=== PATIENT | male | born 1980 | race Caucasian/White ===

== ENCOUNTER 2021-01-28 18:31 | Inpatient (IN) | payer MEDICAID, SELFPAY ==
[~2021-01-28] VITALS: Ht 180.3 cm; Wt 126.6 kg
[2021-01-28 18:46] VITALS: BP 155/84
--- NOTE | 2021-01-28 18:52 | NUR ---
PT AMBULATORY TO BED #8
--- NOTE | 2021-01-28 19:27 | NUR ---
41 Y/O MALE CAME TO THE ED C/O BOIL IN THE LT BUTTOCK. PT STATES THAT "I HAVE A 10/10 PAIN IN MY LT BUTTOCK." DENIES N/V/D; SKIN IS PINK/WARM/DRY; AAOX4 WITH EVEN AND STEADY GAIT; LUNGS CLEAR BL; HR EVEN AND REGULAR; PT DENIES ANY FEVER, CP, SOB, OR COUGH AT THIS TIME; VSS; PATIENT POSITIONED FOR COMFORT; HOB ELEVATED; BEDRAILS UP X2; BED DOWN. ER MD MADE AWARE OF PT STATUS. NKA PMH: DENIES
[2021-01-28] MEDS ORDERED: KETOROLAC 30 MG/ML VIAL IM ONE (19:40)
[2021-01-28] MEDS ORDERED: CLINDAMYCIN 600 MG in DEXTROSE 5% 50 ML IV ONE (19:55)
[2021-01-28 20:06] LABS: BASOPHILS # (AUTO) 0.1 K/uL (0.00-0.22); BASOPHILS % (AUTO) 0.3 % (0.0-2.0); EOSINOPHILS % (AUTO) 0.1 % (0.0-4.0); HEMATOCRIT 40.1 % (36-52); HEMOGLOBIN 13.1 g/dL (12.0-18.0); LYMPHOCYTES # (AUTO) 2.1 K/uL (2.0-11.5); LYMPHOCYTES % (AUTO) 9.3 % (20.5-51.1); MEAN CORPUSCULAR HEMOGLOBIN 26 pg (27-31); MEAN CORPUSCULAR HGB CONC 33 g/dL (33-37); MEAN CORPUSCULAR VOLUME 79.4 fL (80-94); MONOCYTES # (AUTO) 2.1 K/uL (0.8-1.0); MONOCYTES % (AUTO) 9.3 % (1.7-9.3); NEUTROPHILS # (AUTO) 18.6 K/uL (1.8-7.7); PLATELET COUNT (AUTO) 389 K/uL (140-450); RED BLOOD CELL COUNT(AUTO) 5.05 MIL/uL (4.20-6.10); RED CELL DISTRIBUTION WIDTH 13.5 % (11.6-13.7)
[2021-01-28 20:42] LABS: ALBUMIN 2.5 g/dL (3.4-5.0); ANION GAP 14.7 (8-16); CARBON DIOXIDE 25.8 mmol/L (21-32); POTASSIUM 4.5 mmol/L (3.5-5.1); TOTAL BILIRUBIN 0.5 mg/dL (0.0-1.0)
--- NOTE | 2021-01-28 21:33 | NUR ---
OBTAINED INFORMED CONSENT REGARDING CT WITH CONTRAST; ERMD EXPLAINED THE PROCEDURE, RISKS AND BENEFITS OF PROCEDURE. PT ACKNOWLEGED AND SIGNED INFORMED CONSENT
[2021-01-28] MEDS ORDERED: CLINDAMYCIN 600 MG/4 ML VIAL ONE (21:50)
--- NOTE | 2021-01-28 22:21 | NUR ---
PT WAS TAKEN TO CT SCAN
--- NOTE | 2021-01-28 22:34 | NUR ---
PT IS BACK FROM CT VIA WHEELCHAIR
[2021-01-29] MEDS ORDERED: PIPERACILLIN/TAZOBACTAM 3.375 GM in DEXTROSE 5% 50 ML IV ONE (00:15)
[2021-01-29] MEDS ORDERED: NACL 0.9% 1,000 ML IV ONE (00:15)
[2021-01-29] MEDS ORDERED: PIPERACILLIN/TAZOBACTAM 3.375 GM VIAL IV ONE ×2 (00:23→05:38)
[2021-01-29] MEDS ORDERED: MORPHINE SULFATE 2 MG/ML SYR IVP PRN ×2 (00:35→09:10)
[2021-01-29] MEDS ORDERED: MORPHINE SULFATE 4 MG/ML SYR IVP PRN (00:35)
--- NOTE | 2021-01-29 01:56 | NUR ---
PT ARRIVED TO UNIT VIA GURNEY. PT AAOX4, AMBULATORY, ABLE TO MAKE NEEDS KNOWN. PT CALM AND COOPERATIVE TO CARE. RESPIRATIONS ARE EVEN AND UNLABORED TO ROOM AIR. ABDOMEN IS SOFT AND NON-TENDER. SKIN IS WARM AND DRY. PT WITH CELLULITIS ON LEFT BUTTOCKS. UPON INSPECTION SITE IS TENDER, RED, AND SWELLING. OOZING DISCHARGE NOTED WHEN PRESSURE APPLIED. PT WITH IV ACCESS ON LEFT FOREARM G20, SALINE LOCKED. PT VERBALIZED TOLERABLE PAIN ON LEFT BUTTOCK AT THIS TIME. PT ORIENTED AND WELCOMED TO ROOM. VS TAKEN, PT TACHYCARDIC, OTHER VS NORMAL. PT HOOKED TO TELE MONITOR. PT WITH NO REQUESTS AT THIS TIME. CALL LIGHT WITHIN REACH. WILL CONTINUE TO MONITOR.
[2021-01-29 02:00] VITALS: BP 141/78
--- NOTE | 2021-01-29 02:00 | NUR ---
Patient will be admitted to care of DR. OAKLEY. Admited to TELEMMETRY. Will go to room 119B. Belongings list completed. Report to ABRIL ROJAS.
[2021-01-29] MEDS: NACL 0.9% 1,000 ML IV SCH ×4 (02:17→19:10)
--- NOTE | 2021-01-29 02:17 | NUR ---
IVF HOOKED. NS 150/HR INFUSING ORDERED. DRESSING PLACED ON LEFT BUTTOCK. PT REMINDED ABOUT NPO STATUS. WILL CONTINUE TO MONITOR.
[2021-01-29 04:00] VITALS: BP 135/77
--- NOTE | 2021-01-29 04:19 | NUR ---
VS STABLE. PT DENIES ANY PAIN OR DISCOMFORT AT THIS TIME. PT NOT IN DISTRESS. NO REQUESTS MADE AT THIS TIME. PT KEPT COMFORTABLE. SAFETY MEASURES IN PLACE. CALL LIGHT WITHIN REACH. WILL CONTINUE TO MONITOR.
[2021-01-29] MEDS: PIPERACILLIN/TAZOBACTAM 3.375 GM in DEXTROSE 5% 50 ML IV SCH ×3 (05:42→20:58)
--- NOTE | 2021-01-29 07:24 | NUR ---
ENDORSED TO DAY SHIFT NURSE FOR CONTINUITY OF CARE
[2021-01-29 08:00] VITALS: BP 145/81
--- NOTE | 2021-01-29 08:34 | NUR ---
PATIENT HAS BEEN SCREENED AND CATEGORIZED LOW NUTRITION RISK. PATIENT WILL BE SEEN WITHIN 7 DAYS OF ADMISSION. 02/04/21 FNS CONSULT RECEIVED FOR WOUNDS/PRESSURE INJURIES NOT APPROPRIATE FOR CELLULITIS. FNS REFERRAL REASON "NOT APPLICABLE" WITH NO OTHER HIGH NUTRITIONAL RISKS. FLORY [address]
--- NOTE | 2021-01-29 08:41 | NUR ---
ADMINISTERED PRESCRIBED MEDS FOR PRN 8/10 PAIN. PATIENT TOLERATED WELL. MEDICATION EDUCATION PROVIDED. PATIENT VERBALIZED UNDERSTANDING. SAFETY MEASURES IN PLACE. WILL CONTINUE TO MONITOR.
[2021-01-29] MEDS ORDERED: POTASSIUM CHLORIDE 10 MEQ TABER PO PRN (09:10)
[2021-01-29] MEDS ORDERED: ZOLPIDEM 5 MG TAB PO PRN (09:10)
[2021-01-29] MEDS ORDERED: LORazepam 2 MG/ML VIAL IM/IVP PRN (09:10)
[2021-01-29] MEDS ORDERED: DOCUSATE SODIUM 100 MG GELCAP PO PRN (09:10)
[2021-01-29] MEDS ORDERED: ACETAMINOPHEN 325 MG TAB PO PRN (09:10)
[2021-01-29] MEDS ORDERED: HYDROcodone/APAP 5/325 MG 1 TAB TAB PO PRN (09:10)
[2021-01-29] MEDS ORDERED: ONDANSETRON 4 MG/2 ML VIAL IM/IVP PRN (09:10)
[2021-01-29 10:17] LABS: BARBITURATE, URINE NEGATIVE ng/ml (NEG <=200); BENZODIAZEPINE, URINE NEGATIVE ng/mL (NEG <=200)
[2021-01-29 10:18] LABS: CANNABINOID, URINE NEGATIVE ng/mL (NEG <=50); COCAINE, URINE NEGATIVE ng/mL (NEG <=300); OPIATE, URINE NEGATIVE ng/mL (NEG <=2000); PHENCYCLIDINE SCREEN,URINE NEGATIVE ng/mL (NEG <=25)
--- NOTE | 2021-01-29 11:48 | NUR ---
PATIENT ROUNDING PERFORMED. PATIENT LAYING IN BED TALKING ON PHONE. PATIENT DENIES PAIN. ABLE TO MAKE NEEDS KNOWN. NO SIGNS/SYMPTOMS OF DISTRESS OR DISCOMFORT.DIETARY AND WOUND CONSULT IN PLACE. SAFETY MEASURES IN PLACE. WILL CONTINUE TO MONITOR.
[2021-01-29 12:00] VITALS: BP 147/82
--- NOTE | 2021-01-29 12:47 | NUR ---
PROVIDED PATIENT W/ ICEPACK PER REQUEST FOR NON PHARMACEUTICAL PAIN RELIEF. SAFETY MEASURES IN PLACE. WILL CONTINUE TO MONITOR.
[2021-01-29 13:21] LABS: BASOPHILS # (AUTO) 0.1 K/uL (0.00-0.22); BASOPHILS % (AUTO) 0.3 % (0.0-2.0); EOSINOPHILS # (AUTO) 0.1 K/uL (0-0.4); EOSINOPHILS % (AUTO) 0.3 % (0.0-4.0); HEMATOCRIT 38.2 % (36-52); HEMOGLOBIN 12.4 g/dL (12.0-18.0); LYMPHOCYTES # (AUTO) 2.5 K/uL (2.0-11.5); LYMPHOCYTES % (AUTO) 11.7 % (20.5-51.1); MEAN CORPUSCULAR HEMOGLOBIN 26 pg (27-31); MEAN CORPUSCULAR HGB CONC 33 g/dL (33-37); MEAN CORPUSCULAR VOLUME 78.9 fL (80-94); MONOCYTES # (AUTO) 1.8 K/uL (0.8-1.0); MONOCYTES % (AUTO) 8.8 % (1.7-9.3); NEUTROPHILS # (AUTO) 16.6 K/uL (1.8-7.7); NEUTROPHILS % (AUTO) 78.9 % (42.2-75.2); PLATELET COUNT (AUTO) 386 K/uL (140-450); RED BLOOD CELL COUNT(AUTO) 4.84 MIL/uL (4.20-6.10); RED CELL DISTRIBUTION WIDTH 13.7 % (11.6-13.7); WHITE BLOOD COUNT (AUTO) 21.1 K/uL (4.8-10.8)
--- NOTE | 2021-01-29 13:22 | NUR ---
ADMINISTERED PRESCRIBED MEDS PER MD ORDER. PATIENT TOLERATED WELL. PATIENT AWAKE/ALERT, ON TELEPHONE. SHOWS NO SIGNS OF DISTRESS/DISCOMFORT. SAFETY MEASURES IN PLACE. WILL CONTINUE TO MONITOR.
--- NOTE | 2021-01-29 13:35 | NUR ---
PATIENT HAS BEEN SCREENED AND CATEGORIZED MODERATE NUTRITION RISK. PATIENT WILL BE SEEN WITHIN 3-5 DAYS OF ADMISSION. 01/31/21 02/02/[address]
[2021-01-29 13:40] LABS: PROTHROMBIN TIME 10.8 secs (10.8-13.4)
[2021-01-29 13:44] LABS: ANION GAP 16.9 (8-16); CARBON DIOXIDE 25.9 mmol/L (21-32); CREATININE 0.8 mg/dL (0.6-1.3); POTASSIUM 3.8 mmol/L (3.5-5.1)
[2021-01-29 14:16] LABS: CHOL/HDL RATIO 4.8 (1-4.5); MAGNESIUM 1.6 mg/dL (1.8-2.4); PHOSPHORUS 3.1 mg/dL (2.5-4.9); THYROID STIMULATING HORMONE 1.1 uIU/mL (0.34-3.74)
[2021-01-29] MEDS: MAG SULF 2000 MG/WATER PREMIX 50 ML IV PRN (15:32)
[2021-01-29 16:00] VITALS: BP 147/82
[2021-01-29 16:33] LABS: APPEARANCE,URINE CLEAR (CLEAR); BILIRUBIN,URINE 1+ (NEGATIVE); BLOOD, URINE 1+ (NEGATIVE); COLOR,URINE YELLOW (YELLOW); LEUKOCYTE ESTERASE ,URINE TRACE (NEGATIVE); NITRITE, URINE NEGATIVE (NEGATIVE); PH,URINE 5.5 (5.0-9.0); UGLUCOSE 2+ (NEGATIVE)
[2021-01-29 16:48] LABS: RBC,URINE 0-5 /HPF (0-5)
[2021-01-29 16:49] LABS: WBC,URINE 80-100 /HPF (0-5)
--- NOTE | 2021-01-29 19:24 | NUR ---
BEDSIDE ENDORSEMENT PROVIDED TO NIGHTSHIFT NURSE FOR CONTINUITY OF CARE.
--- NOTE | 2021-01-29 19:25 | NUR ---
RECEIVED BEDSIDE REPORT FROM MAURA MCINTOSH. PT AOX4 ON ROOM AIR. NO S/S RESPIRATORY DISTRESS. NO C/O PAIN AT THIS TIME. IV SITE LAC PATENT INTACT INFUSING IVF ORDERED WELL. SAFETY MEASURES IN PLACE. CALL LIGHT WITHIN REACH. WILL CONTINUE TO MONITOR
[2021-01-29 20:00] VITALS: BP 127/67
--- NOTE | 2021-01-29 21:00 | NUR ---
ADMINISTERED SCHEDULED MEDICATION PER MD ORDERS. EDUCATION PROVIDED. PT VERBALIZED UNDERSTANDING. NO DISTRESS NOTED. CALL LIGHT WITHIN REACH. WILL CONTINUE TO MONITOR
--- NOTE | 2021-01-29 22:47 | NUR ---
CLARIFIED WITH DR. SHIPLEY IF SWITCHING PATIENT TO NPO STATUS AFTER MIDNIGHT. NEW ORDERS RECEIVED
--- NOTE | 2021-01-29 22:50 | NUR ---
INFORMED PATIENT OF NPO AFTER MIDNIGHT STATUS. PT VERBALIZED UNDERSTANDING. CARE TRANSPORT NURSE AWARE. POSTED NPO SIGN AT THE PATIENT'S DOOR
--- NOTE | 2021-01-29 22:53 | NUR ---
PATIENT RESTING IN BED, WATCHING VIDEOS ON PHONE. RESPIRATIONS EVEN UNLABORED. NO DISTRESS NOTED. IVF INFUSING WELL. CALL LIGHT WITHIN REACH. WILL CONTINUE TO MONITOR
[2021-01-30] MEDS: DEXT 5% / NACL 0.45% 1,000 ML IV SCH ×3 (00:11→20:00)
[2021-01-30] MEDS: MORPHINE SULFATE 2 MG/ML SYR IVP PRN ×2 (00:14→10:45)
--- NOTE | 2021-01-30 00:15 | NUR ---
PRN MORPHINE GIVEN FOR 8/10 BURNING PAIN ON LEFT BUTTOCKS. EDUCATION PROVIDED. PT VERBALIZED UNDERSTANDING. CALL LIGHT WITHIN REACH. WILL CONTINUE TO MONITOR
--- NOTE | 2021-01-30 00:30 | NUR ---
CLEANED CHANGED REPOSITIONED PATIENT. TOLERATED WELL, NO DISTRESS NOTED. BED IN LOW POSITION. CALL LIGHT WITHIN REACH. IVF INFUSING ORDERED WELL. WILL CONTINUE TO MONITOR
--- NOTE | 2021-01-30 02:40 | NUR ---
PATIENT ASLEEP IN BED. RESPIRATIONS EVEN UNLABORED. NO DISTRESS NOTED. IVF INFUSING WELL. CALL LIGHT WITHIN REACH. WILL CONTINUE TO MONITOR
[2021-01-30 04:00] VITALS: BP 141/69
[2021-01-30] MEDS: PIPERACILLIN/TAZOBACTAM 3.375 GM in DEXTROSE 5% 50 ML IV SCH ×3 (04:54→20:19)
--- NOTE | 2021-01-30 04:58 | NUR ---
ADMINISTERED SCHEDULED MEDICATION PER MD ORDERS. EDUCATION PROVIDED. PT VERBALIZED UNDERSTANDING. NO DISTRESS NOTED. CALL LIGHT WITHIN REACH. WILL CONTINUE TO MONITOR
[2021-01-30 05:57] LABS: BASOPHILS # (AUTO) 0.1 K/uL (0.00-0.22); BASOPHILS % (AUTO) 0.4 % (0.0-2.0); EOSINOPHILS # (AUTO) 0.3 K/uL (0-0.4); EOSINOPHILS % (AUTO) 1.6 % (0.0-4.0); HEMATOCRIT 35.1 % (36-52); HEMOGLOBIN 11.4 g/dL (12.0-18.0); LYMPHOCYTES # (AUTO) 2.9 K/uL (2.0-11.5); LYMPHOCYTES % (AUTO) 17.1 % (20.5-51.1); MEAN CORPUSCULAR HEMOGLOBIN 26 pg (27-31); MEAN CORPUSCULAR HGB CONC 32 g/dL (33-37); MEAN CORPUSCULAR VOLUME 79.6 fL (80-94); MONOCYTES # (AUTO) 1.7 K/uL (0.8-1.0); MONOCYTES % (AUTO) 9.6 % (1.7-9.3); NEUTROPHILS # (AUTO) 12.3 K/uL (1.8-7.7); NEUTROPHILS % (AUTO) 71.3 % (42.2-75.2); PLATELET COUNT (AUTO) 392 K/uL (140-450); RED BLOOD CELL COUNT(AUTO) 4.41 MIL/uL (4.20-6.10); RED CELL DISTRIBUTION WIDTH 13.7 % (11.6-13.7); WHITE BLOOD COUNT (AUTO) 17.2 K/uL (4.8-10.8)
[2021-01-30 05:58] LABS: ANION GAP 10.4 (8-16); CREATININE 0.8 mg/dL (0.6-1.3); POTASSIUM 4.4 mmol/L (3.5-5.1)
[2021-01-30 06:09] LABS: MAGNESIUM 1.8 mg/dL (1.8-2.4); PHOSPHORUS 3.4 mg/dL (2.5-4.9)
--- NOTE | 2021-01-30 07:15 | NUR ---
ENDORSED PATIENT TO DAY RN FOR CONTINUITY OF CARE. PATIENT IS IN STABLE CONDITION
--- NOTE | 2021-01-30 07:27 | NUR ---
RECEIVED REPORT FROM POULTRY PROCESS WORKER RN FOR CONTINUITY OF CARE. PATIENT ASLEEP IN RIGHT LATERAL POSITION. BREATHING EVEN UNLABORED IN RA. BREATHING EVEN UNLABORED ON RA, VISIBLE CHEST RISE AND FALLS. IV TO LEFT AC 20G INFUSING IVF D5 1/2 NS @ 100ML/HR. LEFT BUTTOCK CELLULITIS COVERED WITH DRESSING. NPO STATUS FOR PENDING I&D BY DR. MAYS. SAFETY MEASURES IN PLACE, WILL CONTINUE TO MONITOR.
[2021-01-30 08:00] VITALS: BP 131/77
[2021-01-30 08:45] LABS: RAPID PLASMA REAGIN NON-REACTIVE (Non Reactiv)
[2021-01-30 09:06] LABS: HEPATITIS B SURFACE ANTIGEN Negative (Negative)
--- NOTE | 2021-01-30 10:28 | NUR ---
DC PLANNIN YRS OLD MALE PATIENT WAS ADMITTED FROM HOME WITH A DX OF LEFT BUTTOCK CELLULITIS. PT HAS NO MEDICAL HISTORY. CXR SHOWED NO ACUTE DISEASE. RAPID COVID TEST NEGATIVE. ADMINISTERED IVF, IV ABX ZOSYN BLOOD AND URINE CULTURE PENDING. CONSULTED WITH SURGEON FOR POSSIBLE DEBRIDEMENT OF I&D. DC PLAN TO GO HOME WHEN STABLE CM TO FOLLOW
--- NOTE | 2021-01-30 10:45 | NUR ---
MORPHINE GIVEN VIA IVP FOR LEFT BUTTOCK AND ANJALI ANAL PAIN, 03/26. NON PHARMACOLOGICAL PAIN MANAGEMENT INFORMED. WILL CONTINUE TO MONITOR.
--- NOTE | 2021-01-30 11:23 | NUR ---
WOUND CARE EVALUATION NOTE: PT. IS AAX4 POC DISCUSSED AND WOUND CARE TEACHING DONE, PENDING SURGEON CONSULT. PT. VERBALIZES UNDERSTANDING.POC DISCUSSED WITH PRIMARY RN. -LEFT BUTTOCK 1X1CM ABSCESS, SUPERFICIAL WOUND, SOFT TISSUE, PAIN 1/10 NO DRAINAGE, NO ODOR -LEFT ANJALI ANAL ABSCESS, PARTIAL THICKNESS SKIN LOSS WOUND 5X3CM SUPERFICIAL DEPTH, WOUND BED IS RED, MOIST WITH CENTER OF WOUND BED THIN YELLOW DRY ABRASION LIKED. ANJALI WOUND SKIN MOIST, ERYTHEMA, WARM AND HARD TISSUE WITH PAIN 5/10 WHEN TOUCHED ENTIRE ERYTHEMA 13X4CM RECOMMENDATIONS: -PENDING SURGEON CONSULT -CONTINUE IV ANTIBIOTIC TX -CLEANSE LEFT BUTTOCK ABSCESS WITH WOUND CARE SOLUTION, PAT DRY, APPLY ADAPTIC DRESSING AND COVER WITH DRY DRESSING QD AND PRN IF SOILING -CLEANSE LEFT PERIANAL ABSCESS WITH WOUND CARE SOLUTION, PAT DRY, APPLY HYDROGEL WITH ADAPTIC DRESSING QD AND PRN IF SOILING
[2021-01-30] MEDS ORDERED: DEXTROSE 50% 50 ML SYR IVP PRN (11:25)
[2021-01-30] MEDS: BLOOD GLUCOSE MONITORING 1 DEV DEV FS SCH ×3 (11:59→20:12)
[2021-01-30 12:07] LABS: T4 (THYROXINE) 8.3 ug/dL (4.5-12.0)
[2021-01-30] MEDS: INSULIN LISPRO SLIDING SCALE 100 UNITS/ML VIAL SUBQ PRN ×3 (12:15→20:14)
--- NOTE | 2021-01-30 12:15 | NUR ---
8 UNITS OF HUMALOG GIVEN FOR BS LEVEL 328. EDUCATION PROVIDED REGARDING DIABETES DIET AND MANAGEMENT. VERBALIZED UNDERSTANDING, BUT NEED MORE TEACHING, PER PATIENT, HE IS FIRST TIME DIAGNOSED WITH DIABETES. IV INFUSING ORDERED. WILL CONTINUE TO MONITOR.
[2021-01-30] MEDS: NON ADHERENT DRESSING TP SCH (12:38)
[2021-01-30] MEDS: SKINTEGRITY HYDROGEL TP SCH (12:39)
--- NOTE | 2021-01-30 12:39 | NUR ---
WOUND CARE PERFORMED. CLEANSE WITH WOUND CLEANSER. PATTED DRY, APPLIED ADAPTIVE DRESSING AND HYDROGEL, COVERED WITH ABD PAD. SECURED WITH TAPE, PATIENT TOLERATED WELL. DR. MORALES WILL PERFORM I&D TOMORROW.
--- NOTE | 2021-01-30 15:11 | NUR ---
PATIENT RESTING IN BED COMFORTABLY, IV INFUSING ORDERED. WILL CONTINUE TO MONITOR.
[2021-01-30 16:00] VITALS: BP 131/72
[2021-01-30] MEDS: metFORMIN 500 MG TAB PO SCH (16:27)
--- NOTE | 2021-01-30 17:04 | NUR ---
8 UNITS OF HUMALOG GIVEN FOR BS LEVEL 302. PATIENT TOLERATED WELL. NO ACUTE DISTRESS NOTED AT THIS TIME, WILL CONTINUE TO MONITOR.
--- NOTE | 2021-01-30 18:48 | NUR ---
WOUND CARE PERFORMED, PATIENT HAD BM. PATIENT TOLERATED WELL. ANJALI ANAL ABSCESS CABLE TESTER TO TOUCH, REDNESS. WARM AND PAINFUL TO TOUCH. PATIENT KEPT COMFORTABLY.
--- NOTE | 2021-01-30 19:15 | NUR ---
ENDORSED PATIENT TO CONGRESSIONAL DISTRICT AIDE RN FOR CONTINUITY OF CARE. PATIENT IN STABLE CONDITION.
--- NOTE | 2021-01-30 19:16 | NUR ---
RECEIVED BEDSIDE REPORT FROM DAY RN TREY. PT AOX4 ON ROOM AIR. NO S/S RESPIRATORY DISTRESS. NO C/O PAIN AT THIS TIME. IV SITE LAC PATENT INTACT INFUSING IVF PER MD ORDERS. SAFETY MEASURES IN PLACE. CALL LIGHT WITHIN REACH. WILL CONTINUE TO MONITOR
[2021-01-30 20:00] VITALS: BP 129/73
--- NOTE | 2021-01-30 20:24 | NUR ---
6 UNITS HUMALOG GIVEN SUBQ FOR BS 262. ADMINISTERED SCHEDULED MEDICATION PER MD ORDERS. EDUCATION PROVIDED. PT VERBALIZED UNDERSTANDING. NO DISTRESS NOTED. POC DISCUSSED. AT BEDSIDE. CALL LIGHT WITHIN REACH. WILL CONTINUE TO MONITOR
--- NOTE | 2021-01-30 22:01 | NUR ---
PATIENT RESTING IN BED WATCHING VIDEO ON PHONE. PROVIDED SANDWICH REQUESTED. DENIES DISCOMFORT. RESPIRATIONS EVEN UNLABORED. NO DISTRESS NOTED. IVF INFUSING WELL. CALL LIGHT WITHIN REACH. WILL CONTINUE TO MONITOR
--- NOTE | 2021-01-31 00:25 | NUR ---
PATIENT ASLEEP IN BED. RESPIRATIONS EVEN UNLABORED. NO DISTRESS NOTED. IVF INFUSING WELL ORDERED. CALL LIGHT WITHIN REACH. WILL CONTINUE TO MONITOR
[2021-01-31] MEDS: DEXT 5% / NACL 0.45% 1,000 ML IV SCH ×2 (01:15→16:00)
--- NOTE | 2021-01-31 02:39 | NUR ---
PATIENT ASLEEP IN BED. RESPIRATIONS EVEN UNLABORED. NO DISTRESS NOTED. IVF INFUSING WELL ORDERED. CALL LIGHT WITHIN REACH. WILL CONTINUE TO MONITOR
[2021-01-31 04:00] VITALS: BP 146/83
[2021-01-31] MEDS: PIPERACILLIN/TAZOBACTAM 3.375 GM in DEXTROSE 5% 50 ML IV SCH ×3 (04:54→20:48)
--- NOTE | 2021-01-31 04:55 | NUR ---
SCHEDULED MEDICATION GIVEN PER MD ORDERS, EDUCATION PROVIDED. NO DISTRESS NOTED. CALL LIGHT WITHIN REACH. WILL CONTINUE TO MONITOR
[2021-01-31 05:27] LABS: BASOPHILS # (AUTO) 0.1 K/uL (0.00-0.22); BASOPHILS % (AUTO) 0.6 % (0.0-2.0); EOSINOPHILS # (AUTO) 0.4 K/uL (0-0.4); EOSINOPHILS % (AUTO) 2.8 % (0.0-4.0); HEMATOCRIT 35.2 % (36-52); HEMOGLOBIN 11.4 g/dL (12.0-18.0); LYMPHOCYTES # (AUTO) 3.1 K/uL (2.0-11.5); LYMPHOCYTES % (AUTO) 21.2 % (20.5-51.1); MEAN CORPUSCULAR HEMOGLOBIN 26 pg (27-31); MEAN CORPUSCULAR HGB CONC 32 g/dL (33-37); MEAN CORPUSCULAR VOLUME 79.2 fL (80-94); MONOCYTES # (AUTO) 1.4 K/uL (0.8-1.0); NEUTROPHILS # (AUTO) 9.5 K/uL (1.8-7.7); NEUTROPHILS % (AUTO) 65.4 % (42.2-75.2); PLATELET COUNT (AUTO) 423 K/uL (140-450); RED BLOOD CELL COUNT(AUTO) 4.45 MIL/uL (4.20-6.10); RED CELL DISTRIBUTION WIDTH 13.6 % (11.6-13.7); WHITE BLOOD COUNT (AUTO) 14.5 K/uL (4.8-10.8)
[2021-01-31] MEDS: MORPHINE SULFATE 2 MG/ML SYR IVP PRN ×2 (05:31→21:22)
--- NOTE | 2021-01-31 05:31 | NUR ---
PRN MORPHINE GIVEN FOR C/O LEFT BUTTOCK AND ANJALI ANAL PAIN, 03/26. CALL LIGHT WITHIN REACH. WILL CONTINUE TO MONITOR
[2021-01-31 05:34] LABS: ANION GAP 8.2 (8-16); CARBON DIOXIDE 28.7 mmol/L (21-32); CREATININE 0.7 mg/dL (0.6-1.3); POTASSIUM 3.9 mmol/L (3.5-5.1)
[2021-01-31 05:41] LABS: MAGNESIUM 1.6 mg/dL (1.8-2.4); PHOSPHORUS 3.6 mg/dL (2.5-4.9)
[2021-01-31] MEDS: BLOOD GLUCOSE MONITORING 1 DEV DEV FS SCH ×4 (05:50→21:00)
[2021-01-31] MEDS: INSULIN LISPRO SLIDING SCALE 100 UNITS/ML VIAL SUBQ PRN ×4 (06:37→21:18)
--- NOTE | 2021-01-31 06:41 | NUR ---
8 UNITS HUMALOG GIVEN SUBQ FOR BS 303. EDUCATION PROVIDED. PT VERBALIZED UNDERSTANDING. NO DISTRESS NOTED. CALL LIGHT WITHIN REACH. WILL CONTINUE TO MONITOR
--- NOTE | 2021-01-31 07:25 | NUR ---
RECEIVED PATIENT FROM NIGHT NURSE. PATIENT IN BED AWAKE AND ALERT. RESP EVEN AND UNLABORED ON ROOM AIR. C/O MILD PAIN BUT TOLERABLE AT THIS TIME. LAC 20G INFUSING D5 1/2NS. PATIENT SCHEDULED TO HAVE PROCEDURE AT [address] MORALES. NPO AT THIS TIME. PLAN OF CARE DISCUSSED, PATIENT VERBALIZED UNDERSTANDING. HOB ELEVATED, SAFETY MEASURES IN PLACE. BED IN LOW POSITIONS. CALL LIGHT WITHIN REACH. WILL CONTINUE TO MONITOR.
--- NOTE | 2021-01-31 07:25 | NUR ---
ENDORSED PATIENT TO DAY RN FOR CONTINUITY OF CARE. PATIENT IS IN STABLE CONDITION
[2021-01-31 08:00] VITALS: BP 126/69
[2021-01-31] MEDS: metFORMIN 500 MG TAB PO SCH ×2 (08:00→17:54)
--- NOTE | 2021-01-31 08:39 | NUR ---
FNS CONSULTATION RECEIVED FOR NEWLY DIAGNOSED DIABETIC. PATIENT WILL BE SEEN 1-2 DAYS WITHIN RECEIVING CONSULTATION 01/31/21-02/01/[address]
[2021-01-31] MEDS: MAG SULF 2000 MG/WATER PREMIX 50 ML IV PRN (08:50)
--- NOTE | 2021-01-31 08:58 | NUR ---
PATIENT IN BED AWAKE AND ALERT. MORNING ROUTINE MEDICATIONS HELD D/T NPO FOR PROCEDURE. MAG RIDER GIVEN FOR PRN. DR MORALES AT BEDSIDE DISCUSSING PROCEDURE WITH PATIENT, PATIENT VERBALIZED UNDERSTANDING. CONSENT WAS SIGNED. NO NOTED DISTRESS AT THIS TIME. WILL CONTINUE TO MONITOR.
--- NOTE | 2021-01-31 10:35 | NUR ---
PATIENT WENT TO OR FOR PROCEDURE. PATIENT LEFT IN STABLE CONDITION.
[2021-01-31] MEDS ORDERED: BUPIVACAINE-MPF 0.25% 30 ML VIAL INJ ONE (10:37)
[2021-01-31] MEDS ORDERED: HYDROGEN PEROXIDE 3% 240 ML BTL TP ONE (10:38)
[2021-01-31] MEDS ORDERED: SUGAMMADEX SODIUM 200 MG/2 ML VIAL IV ONE (10:44)
[2021-01-31] MEDS ORDERED: PROPOFOL 200 MG/20 ML VIAL IV ONE (10:44)
[2021-01-31] MEDS ORDERED: fentaNYL citrate 0.05 MG/ML VIAL ONE (10:44)
[2021-01-31] MEDS ORDERED: SUCCINYLCHOLINE CHLORIDE 200 MG/10 ML VIAL IVP ONE (10:44)
[2021-01-31] MEDS ORDERED: KETOROLAC 30 MG/ML VIAL ONE (10:44)
[2021-01-31] MEDS ORDERED: ROCURONIUM 50 MG/5 ML VIAL IV ONE (10:44)
[2021-01-31] MEDS ORDERED: ONDANSETRON 4 MG/2 ML VIAL ONE (10:44)
[2021-01-31] MEDS ORDERED: DESFLURANE 240 ML BTL INH ONE (10:44)
[2021-01-31] MEDS ORDERED: ONDANSETRON 4 MG/2 ML VIAL IVP PRN (11:20)
[2021-01-31] MEDS ORDERED: HYDROmorphone PFS 2 MG/ML SYR ONE (12:07)
[2021-01-31] MEDS: HYDROmorphone 1 MG/ML AMP IVP PRN ×3 (12:09→12:29)
[2021-01-31] MEDS: SKINTEGRITY HYDROGEL TP SCH ×2 (13:00→13:59)
[2021-01-31] MEDS: NON ADHERENT DRESSING TP SCH ×2 (13:00→13:58)
--- NOTE | 2021-01-31 13:15 | NUR ---
PATIENT CAME BACK FROM OR S/P I&D LEFT BUTTOCK WITH SETON PLACEMENT WITH DR MORALES. PER DR MORALES INSTRUCTIONS, TOMORROW, RN CAN REMOVE PACKING AND AFFECTED AREA CAN BE COVERED WITH ABD DRESSING WITH TAPE. PATIENT IN BED AWAKE AND ALERT. NO NOTED DISTRESS AT THIS TIME. PAIN AT TOLERABLE LEVEL AT THIS TIME. CALL LIGHT WITHIN REACH. WILL CONTINUE TO MONITOR.
--- NOTE | 2021-01-31 13:40 | NUR ---
BLOOD SUGAR 255, INSULIN GIVEN PER SLIDING SCALE. PATIENT IN BED RESTING. PAIN IS AT TOLERABLE LEVEL. DRESSING INTACT WITH NO ACTIVE BLEEDING AT THIS TIME. CALL LIGHT WITHIN REACH. WILL CONTINUE TO MONITOR.
--- NOTE | 2021-01-31 13:53 | NUR ---
01/31/21 RD INITIAL ASSESSMENT COMPLETED PLEASE REFER TO NUTRITION ASSESSMENT UNDER CARE ACTIVITY FOR ESTIMATED NUTRITIONAL NEEDS. 1. CONSIDER ADVANCING TO [facility] [address] DIET TOL[address]ATED 2. RD PROVIDED CONSISTENT CARBOHYDRATE NUTRITION EDUCATION. PATIENT ACCEPTED. 3. RD TO FOLLOW-UP 3-5 DAYS, MODERATE RISK FLORY DUR[address]
--- NOTE | 2021-01-31 14:16 | NUR ---
RECOMMENDATION FOR [facility] 75GM DIET WAS APPROVED BY DR. SHIPLEY. RECEIVED TORB.
--- NOTE | 2021-01-31 15:35 | NUR ---
PATIENT IN BED SLEEPING, CHEST NOTED RISING. CALL LIGHT WITHIN REACH. WILL CONTINUE TO MONITOR.
[2021-01-31 16:00] VITALS: BP 132/67
--- NOTE | 2021-01-31 18:07 | NUR ---
BLOOD GLUCOSE 248, INSULIN GIVEN PER SLIDING SCALE. PATIENT AWAKE AND ALERT EATING DINNER. RECEIVED ORDERED FROM DR. SHIPLEY TO DC D5 1/2 NS AND GIVE NS AT 20 MLS/HR. ORDERED READ BACK AND CONFIRMED AND ORDER CARRIED OUT. NO NOTED DISTRESS. WILL CONTINUE TO MONITOR.
[2021-01-31] MEDS: NACL 0.9% 1,000 ML IV SCH (18:11)
--- NOTE | 2021-01-31 19:23 | NUR ---
ENDORSED PATIENT TO NIGHT NURSE. PATIENT IN STABLE CONDITION.
--- NOTE | 2021-01-31 19:30 | NUR ---
RECEIVED REPORT AT BEDSIDE FROM RN DAYSHIFT NURSE AT BEDSIDE FOR CONTINUITY OF CARE, PT IN STABLE CONDITION.
[2021-01-31 20:00] VITALS: BP 156/80
--- NOTE | 2021-01-31 20:00 | NUR ---
PT SITTING UP IN BED AOX4 ON ROOM AIR. HE HAS LAC 20G HE IS RUNNING NORMAL SALINE AT 20MLS/HR. HE ALSO HAS A R HAND 20 GUAGE SALINE LOCKED AT THIS TIME. PT HAS DRESSING ON RIGHT BUTTOCK, SOME DRAINAGE NOTED BUT NOT SOAKED THROUGH THE DRESSING. WILL REINFORCE V/S: T 98.1 P 91 R 20 B/P 156/88 02 95%. PT C/O 03/26 PAIN IN BUTTOCKS. ALL UNIVERSAL FALLS PRECAUTIONS IN PLACE. Addendum: 02/01/21 at 0131 by Orquidea Reyes RN LEFT BUTTOCK NOT RIGHT BUTTOCK
--- NOTE | 2021-01-31 21:30 | NUR ---
PT FINGERSTICK IS 258 , PT GIVEN 6 UNITS OF HUMALOG COVERAGE PER S/S PT C/O THAT R BUTTOCK IS 8/10 PAIN , HE WAS GIVEN MORPHINE IVP /PRN ORDERED. DRESSING ON RIGHT BUTTOCK REINFORCED. PT REQUEST THAT IV SITE ON RIGHT HAND BE REMOVED BECAUSE R HAND LOOKED SLIGHTLY SWOLLEN AND IT WAS A LITTLE PAINFUL. IV SITE REMOVED , CANULA INTACT. ZOSYN HUNG AND RUNNING ORDERED. EDUCATION REGARDING DM2 AND EDUCATION REGARDING ZOSYN PURPOSES AND SIDE EFFECTS PROVIDED AT BEDSIDE. PT SAID THAT HE WAS ABLE TO AMBULATE TO TOILET AND BACK INDEPENDENTLY. WILL MONITOR FOR PAIN RELIEF. Addendum: 02/01/21 at 0132 by Orquidea Reyes RN LEFT BUTTOCK NOT RIGHT BUTTOCK
--- NOTE | 2021-02-01 00:15 | NUR ---
PT IN BED AWAKE TALKING ON THE PHONE, HE DENIES ANY PAIN , NO C/O VOICED ALL UNIVERSAL FALLS PRECAUTIONS IN PLACE.
[2021-02-01] MEDS: MORPHINE SULFATE 2 MG/ML SYR IVP PRN ×4 (04:40→18:59)
--- NOTE | 2021-02-01 04:45 | NUR ---
PT AWAKE AND HAS C/OF 8/10 PAIN IN LEFT BUTTOCK AREA, WAS GIVEN PRN/IVP MORPHINE. ZOSYN IV ABT HUNG AND RUNNING AT 100MLS/HR EDUCATION REGARDING MEDICATION AND IT PURPOSES PROVIDED AT BEDSIDE. PT VERBALIZED UNDERSTANDING.
[2021-02-01] MEDS: PIPERACILLIN/TAZOBACTAM 3.375 GM in DEXTROSE 5% 50 ML IV SCH ×3 (04:54→20:42)
--- NOTE | 2021-02-01 06:00 | NUR ---
PT IN BED RESTING WITH EYES CLOSED BUT AROUSABLE TO NAME AND LIGHT TOUCH. V/S FOLLOWS: T 97.1 P 79 R 19 B/P 149/74 02 93% ON ROOM AIR. PT FINGERSTICK IS 173, HE WAS GIVEN 2 UNITS HUMALOG PER S/S. DRESSING INTACT SOME DRAINAGE SEROSANGUINEOUS NOTICED FROM BANDAGE. ALL REQUESTED NEEDS ATTENDED BY STAFF AND ALL UNIVERSAL FALLS PRECAUTIONS IN PLACE.
[2021-02-01] MEDS: INSULIN LISPRO SLIDING SCALE 100 UNITS/ML VIAL SUBQ PRN ×3 (06:02→20:42)
[2021-02-01] MEDS: BLOOD GLUCOSE MONITORING 1 DEV DEV FS SCH ×4 (06:04→20:42)
[2021-02-01 06:17] LABS: BASOPHILS # (AUTO) 0.1 K/uL (0.00-0.22); BASOPHILS % (AUTO) 0.6 % (0.0-2.0); EOSINOPHILS # (AUTO) 0.5 K/uL (0-0.4); EOSINOPHILS % (AUTO) 3.3 % (0.0-4.0); HEMATOCRIT 35.8 % (36-52); HEMOGLOBIN 11.6 g/dL (12.0-18.0); LYMPHOCYTES # (AUTO) 3.2 K/uL (2.0-11.5); LYMPHOCYTES % (AUTO) 20.7 % (20.5-51.1); MEAN CORPUSCULAR HEMOGLOBIN 26 pg (27-31); MEAN CORPUSCULAR HGB CONC 32 g/dL (33-37); MEAN CORPUSCULAR VOLUME 79.2 fL (80-94); MONOCYTES # (AUTO) 1.5 K/uL (0.8-1.0); MONOCYTES % (AUTO) 9.8 % (1.7-9.3); NEUTROPHILS # (AUTO) 10.1 K/uL (1.8-7.7); NEUTROPHILS % (AUTO) 65.6 % (42.2-75.2); PLATELET COUNT (AUTO) 443 K/uL (140-450); RED BLOOD CELL COUNT(AUTO) 4.52 MIL/uL (4.20-6.10); RED CELL DISTRIBUTION WIDTH 13.4 % (11.6-13.7); WHITE BLOOD COUNT (AUTO) 15.3 K/uL (4.8-10.8)
--- NOTE | 2021-02-01 07:21 | NUR ---
PT ENDORSED BY IMPROVEMENT COORDINATOR NURSE FOR CONTINUITY OF CARE, POC DISCUSSED. PT IS RESTING ON HIS RIGHT SIDE COMFORTABLY WITH NO SIGNS OF ACUTE DISTRESS. PT HAS A LEFT BUTTOCK CELLULITES. DRESSING IS INTACT. PT IS ON ROOM AIR WITH CHEST RISING AND FALLING EVEN AND UNLABORED. SAFETY MEASURES IN PLACE, CALL LIGHT WITHIN REACH. WILL CONTINUE TO MONITOR.
[2021-02-01 08:00] VITALS: BP 146/78
[2021-02-01] MEDS: metFORMIN 500 MG TAB PO SCH ×2 (08:28→16:59)
--- NOTE | 2021-02-01 09:38 | NUR ---
PRN PAIN MEDICATION ADMINISTERED FOR PAIN 03/26. PT EDUCATION PROVIDED. PT TOLERATED ADMINISTRATION.
--- NOTE | 2021-02-01 09:45 | NUR ---
WOUND CARE RE-EVALUATION NOTES: -SURGICAL WOUND TO S/P I&D LEFT ANJALI-RECTAL, 5.4O7N1CV, TUNNEL 5CM TO 12 OCLOCK DIRECTION WOUND BED 20% GRANULATING TISSUE,80% SOFT YELLOW SLOUGH TISSUE, MODERATE AMOUNT SANGUINOUS, NO ODOR, WOUND EDGE WELL DEFENDED, WITH ANJALI-WOUND SKIN DRY AND INTACT, NO SWELLING,NO ERYTHEMA LEFT BUTTOCK 1CM SLIT CUT DRY AND CLEAN AND DRY WITH SUTURES IN PLACE SECURED AND CONNECT TO ANJALI RECTAL WOUND RECOMMENDATIONS: -CLEANSE PERIRECTAL WOUND WITH NS. PAT DRY PACK WITH HYDROGEL AND DRY DRESSING COVER WITH ABD. DRESSING, SECURE WITH TAPE QD AND PRN IF SOILING -KEEP AREA DRY AND CLEAN AT ALL TIME -PLEASE FOLLOW UP WITH SURGEON 7-10 DAYS AFTER DISCHARGED RECOMMENDATIONS DISCUSSED WITH PRIMARY RN AND PT. WOUND CARE TEACHING DONE, PT. VERBALIZES UNDERSTANDING, PER PT. HIS IS ABLE TO DO IT. PLEASE CONTACT WOUND CARE NURSE FOR ANY QUESTIONS AND CHANGES IN SKIN CONDITION. Addendum: 02/01/21 at 1119 by Cyn Li (Grace) RN Review of surgeon note, anjali-rectal abscess with placement of seton and fistula noted during surgery.
--- NOTE | 2021-02-01 09:52 | NUR ---
WOUND NURSE PERFORMED WOUND DRESSING. PT TOLERATED PROCEDURE. PICTURES TAKEN AND PLACED IN THE CHART. NEW DRESSING IS CLEAN, DRY AND INTACT. SAFETY MEASURES IN PLACE. CALL LIGHT WITHIN REACH, WILL CONTINUE TO MONITOR.
[2021-02-01] MEDS: glipiZIDE 10 MG TAB PO SCH ×2 (10:53→16:59)
--- NOTE | 2021-02-01 11:09 | NUR ---
ROUNDED ON PT, PT IS RESTING COMFORTABLE IN BED WITH NO SIGNS OF ACUTE DISTRESS. CALL LIGHT WITHIN REACH. WILL CONTINUE TO MONITOR.
--- NOTE | 2021-02-01 11:36 | NUR ---
blood glucose is 277, 6 units of insulin administered per sliding scale. pt education provided. pt tolerated administration. safety measures in place, will continue to monitor.
[2021-02-01 12:24] LABS: MAGNESIUM 1.7 mg/dL (1.8-2.4); PHOSPHORUS 4.3 mg/dL (2.5-4.9)
[2021-02-01] MEDS: NON ADHERENT DRESSING TP SCH (12:33)
[2021-02-01] MEDS: SKINTEGRITY HYDROGEL TP SCH (12:34)
--- NOTE | 2021-02-01 12:34 | NUR ---
ROUNDED ON PT, PT IS RESTING COMFORTABLE IN BED WITH NO ACUTE SIGNS OF DISTRESS. SAFETY MEASURES IN PLACE, CALL LIGHT WITHIN REACH. WILL CONTINUE TO MONITOR.
--- NOTE | 2021-02-01 14:18 | NUR ---
RECEIVED REPORT FROM NADIA FOR CONTINUITY OF CARE. PATIENT IS AWAKE, ALERT, NO DISTRESS NOTED. WILL CONTINUE TO MONITOR.
--- NOTE | 2021-02-01 16:11 | NUR ---
PATIENT ALERT AND AWAKE. NO DISTRESS NOTED. PATIENT REMAINS ON ROOM AIR. PATIENT MARTHA ANY PAIN AT THIS MOMENT. PATIENT LISTENING TO MUSIC IN BED. WILL CONTINUE TO MONITOR.
[2021-02-01 16:21] LABS: ANION GAP 6.9 (8-16); CARBON DIOXIDE 31.1 mmol/L (21-32); CREATININE 0.8 mg/dL (0.6-1.3)
[2021-02-01 17:14] VITALS: BP 139/62
[2021-02-01] MEDS: NACL 0.9% 1,000 ML IV SCH (18:05)
[2021-02-01] MEDS: MAG SULF 2000 MG/WATER PREMIX 50 ML IV PRN (18:23)
--- NOTE | 2021-02-01 19:05 | NUR ---
PATIENT COMPLAIN OF LEFT BUTTOCK PAIN 9 OUT OF 10. PRN MEDICATION GIVEN.
--- NOTE | 2021-02-01 19:24 | NUR ---
RECEIVED PATIENT FROM AM SHIFT NURSE FOR CONTINUITY OF CARE. ALERT AND ABLE TO MAKE NEEDS KNOWN. RESPIRATIONS EVEN, UNLABORED. NO S/S RESPIRATORY DISTRESS NOTED. S1/S2 AUSCULTATED. SKIN WARM, DRY. IV SITE TO LEFT AC 20G PATENT/INTACT, INFUSING FLUIDS WELL. NO C/O PAIN. NO S/S ACUTE DISTRESS. ABDOMEN SOFT, NONTENDER, NONDISTENDED. BOWEL SOUNDS ACTIVE x4 QUADRANTS. PATIENT IS CONTINENT OF B/B. PLAN OF CARE DISCUSSED. SAFETY PRECAUTIONS IN PLACE. CALL LIGHT IN REACH AT ALL TIMES.
--- NOTE | 2021-02-01 19:24 | NUR ---
ENDORSE PATIENT TO MOBILE PARAMEDICAL EXAMINER NURSE AT BEDSIDE FOR CONTINUITY OF CARE. ENDORSED PAIN REASSESSMENT TO NURSE.
--- NOTE | 2021-02-01 21:00 | NUR ---
DUE MEDS GIVEN. PATIENT RESTING COMFORTABLY IN BED WATCHING TV. NO S/S RESPIRATORY DISTRESS. NO C/O PAIN. NO S/S ACUTE DISTRESS. CALL LIGHT IN REACH. SAFETY PRECAUTIONS IN PLACE.
--- NOTE | 2021-02-01 23:32 | NUR ---
PATIENT RESTING COMFORTABLY IN BED. NO C/O PAIN. NO S/S ACUTE DISTRESS. CALL LIGHT IN REACH.
[2021-02-02] VITALS: BP 128/75
--- NOTE | 2021-02-02 01:46 | NUR ---
MADE ROUNDS. PATIENT IS ASLEEP. NO S/S ACUTE DISTRESS. CALL LIGHT IN REACH. SAFETY PRECAUTIONS IN PLACE.
[2021-02-02] MEDS: MORPHINE SULFATE 2 MG/ML SYR IVP PRN ×3 (03:42→10:09)
--- NOTE | 2021-02-02 03:42 | NUR ---
administered morphine 2mg ivp for pain 10/10 in the buttocks
[2021-02-02] MEDS: PIPERACILLIN/TAZOBACTAM 3.375 GM in DEXTROSE 5% 50 ML IV SCH ×2 (04:40→12:11)
--- NOTE | 2021-02-02 05:20 | NUR ---
PATIENT IS ASLEEP. NO S/S ACUTE DISTRESS. CALL LIGHT IN REACH. SAFETY PRECAUTIONS IN PLACE.
[2021-02-02 06:17] LABS: ANION GAP 7.5 (8-16); CARBON DIOXIDE 31.6 mmol/L (21-32); CREATININE 0.8 mg/dL (0.6-1.3); POTASSIUM 4.1 mmol/L (3.5-5.1)
[2021-02-02 06:20] LABS: MAGNESIUM 1.9 mg/dL (1.8-2.4); PHOSPHORUS 3.9 mg/dL (2.5-4.9)
[2021-02-02] MEDS: BLOOD GLUCOSE MONITORING 1 DEV DEV FS SCH ×2 (06:31→11:43)
[2021-02-02] MEDS: INSULIN LISPRO SLIDING SCALE 100 UNITS/ML VIAL SUBQ PRN ×2 (06:31→11:50)
[2021-02-02] MEDS: glipiZIDE 10 MG TAB PO SCH (06:33)
[2021-02-02 07:16] LABS: BASOPHILS # (AUTO) 0.1 K/uL (0.00-0.22); BASOPHILS % (AUTO) 0.6 % (0.0-2.0); EOSINOPHILS # (AUTO) 0.5 K/uL (0-0.4); EOSINOPHILS % (AUTO) 3.5 % (0.0-4.0); HEMATOCRIT 35.8 % (36-52); HEMOGLOBIN 11.6 g/dL (12.0-18.0); LYMPHOCYTES # (AUTO) 3.6 K/uL (2.0-11.5); LYMPHOCYTES % (AUTO) 24.6 % (20.5-51.1); MEAN CORPUSCULAR HEMOGLOBIN 25 pg (27-31); MEAN CORPUSCULAR HGB CONC 33 g/dL (33-37); MEAN CORPUSCULAR VOLUME 78.2 fL (80-94); MONOCYTES # (AUTO) 1.4 K/uL (0.8-1.0); MONOCYTES % (AUTO) 9.5 % (1.7-9.3); NEUTROPHILS # (AUTO) 9.1 K/uL (1.8-7.7); NEUTROPHILS % (AUTO) 61.8 % (42.2-75.2); PLATELET COUNT (AUTO) 444 K/uL (140-450); RED BLOOD CELL COUNT(AUTO) 4.58 MIL/uL (4.20-6.10); RED CELL DISTRIBUTION WIDTH 13.6 % (11.6-13.7); WHITE BLOOD COUNT (AUTO) 14.7 K/uL (4.8-10.8)
--- NOTE | 2021-02-02 07:30 | NUR ---
RECEIVED PATIENT FROM NIGHT NURSE. PATIENT IN BED SLEEPING, CHEST NOTED RISING. RESP EVEN AND UNLABORED ON ROOM AIR. NO NOTED DISTRESS AT THIS TIME. PATIENT S/P I&D TO LEFT BUTTOCK CELLULITIS. LAC 20G INFUSING NS 20ML/HR. HOB ELEVATED. CALL LIGHT WITHIN REACH. BED IN LOW POSITION. WILL CONTINUE TO MONITOR.
[2021-02-02 08:00] VITALS: BP 122/55
[2021-02-02] MEDS: metFORMIN 500 MG TAB PO SCH (08:25)
--- NOTE | 2021-02-02 08:33 | NUR ---
PATIENT IN BED AWAKE AND ALERT USING CELL PHONE. RESP EVEN AND UNLABORED ON ROOM AIR. MORNING ROUTINE MEDICATION GIVEN. LAC IV ACCESS INFILTRATED. WILL MAKE ATTEMPT TO INSERT ANOTHER ACCESS. PATIENT VERBALIZED UNDERSTANDING. PATIENT ABLE TO AMBULATE WITH STEADY GAIT. DRESSING TO LEFT BUTTOCK LOOSE AND SOILED, WILL CHANGE PER ORDER. CALL LIGHT WITHIN REACH. WILL CONTINUE TO MONITOR.
[2021-02-02 09:06] LABS: HEPATITIS B SURFACE ANTIBODY Non Reactive (.)
--- NOTE | 2021-02-02 10:28 | NUR ---
IV ACCESS INSERTED TO LEFT FA 22 G USING ASEPTIC TECHNIQUE. MORPHINE GIVEN FOR PAIN TO LEFT BUTTOCK. DRESSING CHANGED. PATIENT TOLERATED WELL. DR BRITO AT BEDSIDE FOR UPDATE. NO NOTED DISTRESS. CALL LIGHT WITHIN REACH. WILL CONTINUE TO MONITOR.
[2021-02-02] MEDS ORDERED: AMOX-999 PO (11:11)
[2021-02-02] MEDS ORDERED: GLIP10TE PO (11:11)
[2021-02-02] MEDS ORDERED: METF-1022 PO (11:11)
[2021-02-02] MEDS ORDERED: ACET-6763 PO (11:12)
--- NOTE | 2021-02-02 11:50 | NUR ---
BLOOD SUGAR 208, INSULIN PROVIDED PER SLIDING SCALE. PATIENT IN BED WATCHING TV. NO NOTED DISTRESS AT THIS TIME. PAIN AT TOLERABLE LEVEL. DISCHARGE ORDER MADE AWARE. PATIENT VERBALIZED UNDERSTANDING. CALL LIGHT WITHIN REACH. WILL CONTINUE TO MONITOR.
[2021-02-02] MEDS: SKINTEGRITY HYDROGEL TP SCH (12:18)
[2021-02-02] MEDS: NON ADHERENT DRESSING TP SCH (12:18)
[2021-02-02 12:24] VITALS: BP 122/55
--- NOTE | 2021-02-02 13:58 | NUR ---
PATIENT DISCHARGED HOME WITH FAMILY. DISCHARGE AND WOUND CARE INSTRUCTIONS WITH DEMONSTRATION PROVIDED, PT VERBALIZED UNDERSTANDING. PATIENT PROVIDED WITH WOUND CARE SUPPLIES. VACC N/A. PATIENT LEFT IN STABLE CONDITION.
== END 2021-02-02 13:40 | disposition home or self-care (01) | DRG 710 ==
LOC: MED 18:32 → MTU 01-29 00:43
PROC: 0D9P0ZZ Drainage of Rectum, Open Approach (ICD-10-PCS; principal; 2021-01-31 10:30)
DX: A41.9 Sepsis, unspecified organism (principal); E11.00 Type 2 diabetes mellitus with hyperosmolarity without nonketotic hyperglycemic-hyperosmolar coma (NKHHC); E43 Unspecified severe protein-calorie malnutrition; L03.317 Cellulitis of buttock; E87.1 Hypo-osmolality and hyponatremia; A63.0 Anogenital (venereal) warts; Z20.822 Contact with and (suspected) exposure to COVID-19; E66.9 Obesity, unspecified; D64.9 Anemia, unspecified; E83.51 Hypocalcemia; E83.42 Hypomagnesemia; K61.1 Rectal abscess; Z68.38 Body mass index [BMI] 38.0-38.9, adult
CPT/HCPCS: 36415; 71045; 72193; 80048; 80053; 80305; 81001; 82150; 82948; 83036; 83605; 83690; 83735; 83880; 84100; 84134; 84436; 84443; 85025; 85610; 85730; 86140; 86592; 86694; 86706; 87040; 87070; 87075; 87081; 87086; 87205; 87340; 87491; 96365; 96372; 99285; A6248; J0330; J1170; J1885; J2270; J2405; J2543; J2704; J3010; J3475; J3490; J7060; J7120; Q9967